=== PATIENT | female | born 1960 | race Two or more races ===

== ENCOUNTER 2017-02-24 15:50 | Emergency (ER) | payer MEDICAID ==
[~2017-02-24] VITALS: Ht 170.2 cm; Wt 63.5 kg
[2017-02-24] MEDS ORDERED: ACET-868 PO (15:53)
--- NOTE | 2017-02-24 15:55 | NUR ---
BIB [facility] 83, WORSENING HEADACHE SINCE THIS MORNING, NO RELIEF WITH TYLENOL. RR IS EVEN AND UNLABORED WITH NAD NOTED. SKIN IS WARM AND NON DIAPHORETIC. PLACED ON MONITOR. WILL CONTINUOUSLY MONITOR THE PATIENT.
[2017-02-24] MEDS ORDERED: METOCLOPRAMIDE HCL 10 MG/2 ML VIAL ONE (16:12)
[2017-02-24] MEDS ORDERED: KETOROLAC TROMETHAMINE INJ 30 MG/ML VIAL ONE (16:12)
[2017-02-24] MEDS ORDERED: ACETAMINOPHEN ES 500 MG TABLET ONE (16:13)
[2017-02-24 16:15] LABS: BASOPHILS # (AUTO) 0.2 /CMM (0.0-0.2); BASOPHILS % (AUTO) 2.3 % (0.0-2.0); EOSINOPHILS % (AUTO) 0.1 % (0.0-6.0); HEMATOCRIT 37 % (33-45); LYMPHOCYTES # (AUTO) 1.6 /CMM (0.8-4.8); LYMPHOCYTES % (AUTO) 20.4 % (20.0-44.0); MEAN CORPUSCULAR HEMOGLOBIN 28 PG (26.0-33.0); MEAN CORPUSCULAR HGB CONC 33 g/dl (31.0-36.0); MEAN CORPUSCULAR VOLUME 84 fL (82-100); MONOCYTES # (AUTO) 0.4 /CMM (0.1-1.30); MONOCYTES % (AUTO) 5.7 % (2.0-12.0); NEUTROPHILS # (AUTO) 5.5 /CMM (1.8-8.9); NEUTROPHILS % (AUTO) 71.5 % (43.0-81.0); PLATELET COUNT (AUTO) 283 /CMM (150-450); RDW COEFFICIENT OF VARIATION 14.2 (11.5-15.0); RED BLOOD CELL COUNT(AUTO) 4.35 MIL/uL (4.0-5.2); WHITE BLOOD COUNT (AUTO) 7.7 K/uL (4.3-11.0)
[2017-02-24 16:24] LABS: CALCIUM, SERUM 8.2 mg/dL (8.5-10.1); POTASSIUM 3.2 mmol/L (3.5-5.1)
[2017-02-24] MEDS ORDERED: ACETAMINOPHEN ES 500 MG TABLET PO ONE (16:30)
[2017-02-24] MEDS ORDERED: METOCLOPRAMIDE HCL 10 MG/2 ML VIAL IV ONE (16:30)
[2017-02-24] MEDS ORDERED: KETOROLAC TROMETHAMINE INJ 30 MG/ML VIAL IV ONE (16:30)
[2017-02-24] MEDS ORDERED: IV NS 0.9% 1,000 ML BAG IV ONE (16:30)
--- NOTE | 2017-02-24 16:32 | NUR ---
PATIENT TRANSPORTED FOR CT VIA GURNEY.
--- NOTE | 2017-02-24 17:18 | NUR ---
NI (DAUGHTER) CONTACT INFO
--- NOTE | 2017-02-24 17:40 | NUR ---
PATIENT AMBULATES THE HALLWAY WITH STEADY GAIT.
[2017-02-24 17:54] VITALS: BP 135/78
== END 2017-02-24 17:55 | disposition home or self-care (01) ==
LOC: ER 15:52
DX: G43.909 Migraine, unspecified, not intractable, without status migrainosus (principal); Z86.73 Personal history of transient ischemic attack (TIA), and cerebral infarction without residual deficits; E89.0 Postprocedural hypothyroidism
CPT/HCPCS: 36415; 70450-TC; 80048-TC; 85025-TC; A4216; A4606; J1885; J2765; J7030; Z7610